=== PATIENT | male | born 1985 | race Caucasian/White ===

== ENCOUNTER 2019-06-23 05:34 | Outpatient (CLI) | payer OTHER ==
[~2019-06-23] VITALS: Ht 170.2 cm; Wt 68.0 kg
== END 2019-06-23 15:22 | disposition home or self-care (01) ==
LOC: PREOP 05:34
PROVIDERS: ATTEND Surgery
DX: Z01.818 Encounter for other preprocedural examination (principal)

== ENCOUNTER 2019-07-01 09:42 | Day surgery (SDC) | payer OTHER ==
[2019-07-01] VITALS (8 sets, daily range): BP systolic 108–126; BP diastolic 72–90
[~2019-07-01] VITALS: Ht 170.2 cm; Wt 68.0 kg
[2019-07-01] MEDS ORDERED: LACTATED RINGERS 1,000 ML IV PRN (09:54)
[2019-07-01] MEDS ORDERED: CATHETER FLUSH 10 ML SYR IV PRN (10:00)
[2019-07-01] MEDS ORDERED: ceFAZolin INJECTION 1,000 MG in WATER (STERILE) FOR INJECTION 10 ML IV ONE (10:00)
--- NOTE | 2019-07-01 10:18 | Progress Note-Pre Operative ---
Pre-Operative Progress Note H&P Reviewed The H&P was reviewed, patient examined and no changes noted. Date Seen by Provider: Jul 01, 2019 Time Seen by Provider: 10:17 Date H&P Reviewed: Jul 01, 2019 Time H&P Reviewed: 10:17 Pre-Operative Diagnosis: cyst of scalp x 2 MARIO JALLOH DO Jul 01, 2019 10:17
[2019-07-01] MEDS ORDERED: MIDAZOLAM 2 MG/2 ML (VERSED) VIAL ONE ×2 (11:23→12:28)
[2019-07-01] MEDS ORDERED: MIDAZOLAM 2 MG/2 ML (VERSED) VIAL IVP ONE (11:30)
[2019-07-01] MEDS ORDERED: BUP/EPI 0.5% 1:200,000 (MARCAINE) 10ML VIAL IJ ONE (12:00)
[2019-07-01] MEDS ORDERED: fentaNYL INJECTION 100 MCG/2 ML AMP ONE (12:22)
[2019-07-01] MEDS ORDERED: LIDOCAINE PF 2% 5 ML (XYLOCAINE) VIAL ONE (12:22)
[2019-07-01] MEDS ORDERED: proPOfol 200 MG/20 ML (DIPRIVAN) VIAL IV ONE (12:22)
[2019-07-01] MEDS ORDERED: SEVOFLURANE (ULTANE) 15 ML INHAL SOLN ONE (13:23)
[2019-07-01] MEDS ORDERED: ONDANSETRON 4 MG/2 ML (SDV) Z0FRAN ONE (13:23)
[2019-07-01] MEDS ORDERED: DEXAMETHASONE 10 MG/ML (DECADRON) 1 ML VIAL ONE (13:23)
--- NOTE | 2019-07-01 13:23 | Progress Note-Post Operative ---
Post-Operative Progess Note Surgeon (s)/Fabric Normalizer (s) Surgeon MARIO JALLOH DO Fabric Normalizer: na Pre-Operative Diagnosis cyst of scalp x 2 Post-Operative Diagnosis same Procedure & Operative Findings Date of Procedure 07/01/19 Procedure Performed/Findings excision of scalp cyst x 2 , 4x2 cm and 1.5x1.5 cm Anesthesia Type gen Estimated Blood Loss Estimated blood loss (mL): min Specimens/Packing Specimens Removed cyst of scalp x 2 MARIO JALLOH DO Jul 01, 2019 13:23
--- NOTE | 2019-07-01 13:26 | Discharge Inst-Simple/Standard ---
Discharge Inst-Standard Patient Instructions/Follow Up Plan of Care/Instructions/FU: 12-14 days Barb Activity as Tolerated: Yes Discharge Diet: Regular Diet Other Inst to Patient Follow up Appt: Make appointment for 12-14 days. Instructions: May shower in 24 hours, no tub bath or soaking. Keep area clean and dry. No Smoking Skin/Wound Care: May remove bandages in 24 hours. Symptoms to Report: Appetite Changes, Extremity Discoloration, Numbness/Tingling, Swelling Increased, Bleeding Excessive, Eyesight Changes, Pain Increased, Urine Color Change, Constipation(Persistent), Fever over 101 degree F, Pain/Pressure in chest, Urinating Difficulty, Cough Up/Vomit Blood, Heart Beat Irreg/Pounding, Pa in/Pressure in jaw, Vaginal Bleeding Increase, Cramps in feet or legs, Lightheadedness, Pain/Pressure in shoulder, Diarrhea(Persistent), Memory Changes Suddenly, Questions/Concerns, Weight gain consecutive days, Dizziness/Fainting, Nausea/Vomiting, Shortness of Breath, Weight gain over 2 pounds If questions or concerns contact your physician Or seek help at emergency department. MARIO JALLOH DO Jul 01, 2019 13:26
--- NOTE | 2019-07-01 14:23 | Anesthesia-General Post-Op ---
General Patient Condition Mental Status/LOC: Same as Preop Cardiovascular: Satisfactory Nausea/Vomiting: Absent Respiratory: Satisfactory Pain: Controlled Complications: Absent Post Op Complications Complications None Follow Up Care/Instructions Patient Instructions None needed. Anesthesia/Patient Condition Patient Condition Patient is doing well, no complaints, stable vital signs, no apparent adverse anesthesia problems. No complications reported per nursing. COLBY ALCANTAR CRNA Jul 01, 2019 14:23
--- NOTE | 2019-07-02 00:25 | OPERATIVE REPORT ---
DATE OF SERVICE: 07/01/2019 PREOPERATIVE DIAGNOSIS: Scalp cyst. POSTOPERATIVE DIAGNOSIS: Scalp cyst. PROCEDURE: Excision of cyst of scalp x2, 4 x 2 cm and 1.5 x 1.5 cm. SURGEON: Mario Day DO ANESTHESIA: General. ESTIMATED BLOOD LOSS: Minimal. COMPLICATIONS: None. INDICATIONS: The patient is a 34-year-old male with cyst on the top of his head. The patient wished to have these removed. He understands risks and benefits and wished to proceed with procedure. Consent was signed in the chart. DESCRIPTION OF PROCEDURE: The patient was taken to the operating suite, was prepped and draped in sterile fashion. Surgical pause was performed. Local anesthetic was infiltrated around the cyst. A 15 blade scalpel was used to make a skin incision and the cyst was dissected around removing the cyst in its entirety without rupturing. The first one being 4 x 2 cm and the second one being 1.5 x 1.5 cm. These were in two different locations near each other on the top of the scalp. The larger cyst had excess skin, small excision of skin was removed for closure. Hemostasis was achieved. The wounds were irrigated. The incisions were then closed using 2-0 nylon in a simple running fashion. The two areas were then washed and dried and sterile bandages were applied. The patient tolerated procedure well without any complications and taken to recovery room in stable condition. Job ID: [id number] DocumentID: [id number] Dictated Date: 07/01/2019 16:25:18 Pin Or Clip Fastener Date: 07/02/2019 00:24:15 Dictated By: MARIO DAY DO [facility]
== END 2019-07-01 15:30 | disposition home or self-care (01) ==
LOC: SDC 09:42
PROVIDERS: ATTEND Surgery
DX: L72.11 Pilar cyst (principal)
CPT/HCPCS: 87081; 88304

== ENCOUNTER → 2022-01-13 | Outpatient (CLI) | payer OTHER ==
[2022-01-13 08:57] LABS: BASOPHILS % (AUTO) 0 % (0-10); EOSINOPHILS # (AUTO) 0.2 10^3/uL (0.0-0.3); EOSINOPHILS % (AUTO) 3 % (0-10); HEMATOCRIT 45 % (40-54); HEMOGLOBIN 15.1 g/dL (13.3-17.7); LYMPHOCYTES # (AUTO) 2.6 10^3/uL (1.0-4.0); LYMPHOCYTES % (AUTO) 44 % (12-44); MEAN CORPUSCULAR HEMOGLOBIN 28 pg (25-34); MEAN CORPUSCULAR HGB CONC 33 g/dL (32-36); MEAN CORPUSCULAR VOLUME 84 fL (80-99); MEAN PLATELET VOLUME 10.3 fL (9.0-12.2); MONOCYTES # (AUTO) 0.4 10^3/uL (0.0-1.0); MONOCYTES % (AUTO) 6 % (0-12); NEUTROPHILS # (AUTO) 2.8 10^3/uL (1.8-7.8); NEUTROPHILS % (AUTO) 47 % (42-75); PLATELET COUNT 202 10^3/uL (130-400); WHITE BLOOD COUNT 5.9 10^3/uL (4.3-11.0)
[2022-01-13 09:03] LABS: ALBUMIN 4.7 GM/DL (3.2-4.5); CHLORIDE 100 MMOL/L (98-107); SODIUM 134 MMOL/L (135-145)
[2022-01-13 09:04] LABS: CALCIUM 9.6 MG/DL (8.5-10.1)
[2022-01-13 09:05] LABS: TRIGLYCERIDES 123 MG/DL (<150); VLDL CHOLESTEROL 25 MG/DL (5-40)
[2022-01-13 09:06] LABS: CARBON DIOXIDE 23 MMOL/L (21-32); GLUCOSE 98 MG/DL (70-105)
[2022-01-13 09:07] LABS: BILIRUBIN,TOTAL 0.8 MG/DL (0.1-1.0)
[2022-01-13 09:09] LABS: ALKALINE PHOSPHATASE 62 U/L (40-136); CREATININE SERUM 1.05 MG/DL (0.60-1.30); GFR ESTIMATED 93
[2022-01-13 09:10] LABS: BUN/CREATININE RATIO 12; CHOLESTEROL 205 MG/DL (< 200)
[2022-01-13 09:11] LABS: HDL CHOLESTEROL 52 MG/DL (40-60)
[2022-01-13 09:12] LABS: ALANINE AMINOTRANSFERASE 19 U/L (0-55)
== END ==
LOC: LABNPT 08:39
PROVIDERS: ATTEND Family Medicine
DX: Z00.00 Encounter for general adult medical examination without abnormal findings (principal)
CPT/HCPCS: 80053; 80061; 84443; 85025